=== PATIENT | female | born 1955 | race Caucasian/White ===

== ENCOUNTER 2020-09-21 07:35 | Emergency (ER) | payer OTHER ==
[~2020-09-21] VITALS: Ht 165.1 cm; Wt 72.1 kg
[2020-09-21] MEDS ORDERED: BUPROPION HCL150 M1 PO (07:40)
[2020-09-21] MEDS ORDERED: ZOFRAN ODT4 MG PO (09:41)
[2020-09-21] MEDS ORDERED: MECLIZINE HCL25 M1 PO (09:41)
[2020-09-21 10:03] VITALS: BP 135/61
== END 2020-09-21 10:03 | disposition home or self-care (01) ==
LOC: ER 07:35
DX: H81.10 Benign paroxysmal vertigo, unspecified ear (principal); F32.9 Major depressive disorder, single episode, unspecified; R20.2 Paresthesia of skin; Z79.899 Other long term (current) drug therapy